=== PATIENT | female | born 1950 | race Two or more races ===

== ENCOUNTER 2024-09-03 10:12 | Inpatient (IN) | payer MEDICARE, OTHER ==
[~2024-09-03] VITALS: Ht 154.9 cm; Wt 54.5 kg
--- NOTE | 2024-09-03 10:49 | ED.PDOC ---
GI ASSESSMENT HPI Comments This is a 73 year old female brought in by daughter presenting to the ED with chief complaint of nausea/vomiting. Daughter reports that the patient had started to experience some nausea/vomiting with associated dizziness, headache, chills, and sweats this morning. Daughter relays that the patient had about 4-5 episodes of vomiting prior to arriving in the ED. Daughter states patient has history of hydrocephalus with a TAKE AWAY MAN shunt in place at this time. Patient denies any abdominal pain, hematemesis, diarrhea, fever, dysuria, melena, or flank pain. Chief Complaint: Nausea/Vomiting Time Seen by MD: 10:47 Reviewed Notes: Nurses Notes, Medications, Allergies Allergies: Coded Allergies: NO KNOWN ALLERGIES (Unverified , 09/03/24) Information Source: Patient, Relative (Child) Mode of Arrival: Ambulatory Timing: Hours Duration: Since onset Prehospital treatment: None Quality: None Vomitus: Watery Stool: Normal Severity: Moderate Recent: None Recent Hx of: None Pain Location: None Modifying Factors: Nothing Associated sign and symptoms: Nausea, Vomiting Past Medical History PAST MEDICAL HISTORY: HTN Past Medical History (Other): Hydrocephalus Surgical History (Other): TAKE AWAY MAN Shunt HEAD OF HOUSEKEEPING History: Denies all HEAD OF HOUSEKEEPING Hx Family History Family History: Reviewed,noncontributory to illness Social History Smoker: Non-Smoker, Quit Greater Than 1 Year Alcohol: Rarely Drugs: Denies Drug Use Lives In: Home Constitutional: reports: chills, sweats; denies: diaphoresis, fatigue, fever, malaise, weakness, others EENTM: denies: blurred vision, double vision, ear bleeding, ear discharge, ear drainage, ear pain, ear ringing, eye pain, eye redness, hearing loss, mouth pain, mouth swelling, nasal discharge, nose bleeding, nose congestion, nose pain, photophobia, tearing, throat pain, throat swelling, voice changes, others Respiratory: denies: cough, hemoptysis, orthopnea, SOB at rest, shortness of breath, SOB with excertion, stridor, wheezing, others Cardiovascular: denies: chest pain, dizzy spells, diaphoresis, Dyspnea on exertion, edema, irregular heart beat, left arm pain, lightheadedness, palpitations, PND, syncope, others Gastrointestinal: reports: nausea, vomiting; denies: abdomen distended, abdo jacqueline pain, blood streaked bowels, constipated, diarrhea, dysphagia, difficulty swallowing, hematemesis, melena, poor appetite, poor fluid intake, rectal bleeding, rectal pain, others Genitourinary: denies: abnormal vagina bleeding, burning, dyspareunia, dysuria, flank pain, frequency, hematuria, incontinence, pain, , vagina discharge, urgency, others Neurological: reports: dizziness, headache; denies: fainting, left sided numbness, left sided weakness, numbness, paresthesia, pre-existing deficit, right sided numbness, right sided weakness, seizure, speech problems, tingling, tremors, weakness, others Musculoskeletal: denies: back pain, gout, joint pain, joint swelling, muscle pain, muscle stiffness, neck pain, others Integumetry: denies: bruises, change in color, change in hair/nails, dryness, laceration, lesions, lumps, rash, wounds, others Allergic/Immunocompromised: denies: Difficulty Healing, Frequent Infections, Hives, Itching, others Hematologic/Lymphatic: denies: anemia, blood clots, easy bleeding, easy bruising, swollen glands, others Endocrine: denies: excessive hunger, excessive sweating, excessive thirst, excessive urination, flushing, intolerance to cold, intolerance to heat, unexplained weight gain, unexplained weight loss, others Psychiatric: denies: anxiety, bipolar disorder, depression, hopeless, panic disorder, schizophrenia, sleepless, suicidal, others All Other Systems: Reviewed and Negative Physical Exam General Appearance: Moderate Distress HEENT: Normal ENT Inspection, Pharynx Normal, TMs Normal Neck: Full Range of Motion, Non-Tender, Normal, Normal Inspection Respiratory: Chest Non-Tender, Lungs Clear, No Accessory Muscle Use, No Respiratory Distress, Normal Breath Sounds Cardiovascular: No Edema, No JVD, No Murmur, No Gallop, Normal Peripheral Pulses, Regular Rate/Rhythm Breast Exam: Deferred Gastrointestinal: No Organomegaly, No Pulsatile Mass, Normal Bowel Sounds, Soft, Suprapubic Genitalia: Deferred Pelvic: Deferred Rectal: Deferred Extremities: No calf tenderness, Normal capillary refill, Normal inspection, Normal range of motion, Non-tender, No pedal edema Musculoskeletal : Apperance: Normal Neurologic: Alert, gas plant repairer II-XII nml as Tested, Motor Weakness, Normal Affect, Normal Mood, No Sensory Deficits Cerebellar Function: Normal Reflexes: Normal Skin: Dry, Normal Color, Warm Lymphatic: No Adenopathy EKG EKG : Pulse Rate (adult): 61 [place]: Normal Cardiac Rhythm: NSR Block: None Hypertrophy: None ST: Normal Was a procedure done? Was a procedure done?: No GI differential Dx Differential Diagnosis: Gastritis/PUD, Gastroenteritis, Pancreatitis, UTI, Electrolyte Imbalance, Food Poisoning, Other (Sepsis) X-Ray, Labs, Meds, VS Vital Signs Date Time Temp Pulse Resp B/P (MAP) Pulse Ox O2 Delivery O2 Flow Rate FiO2 09/03/24 12:06 56 14 98 Room Air* 0 21 09/03/24 12:06 97.7 56 14 138/72 (94) 98 97.7 09/03/24 11:43 97.5 61 16 137/71 (93) 97 97.5 09/03/24 10:55 61 09/03/24 10:51 61 09/03/24 10:33 97.4 57 16 143/66 (91) 97 97.4 Lab Test 09/03/24 11:58 09/03/24 10:58 09/03/24 10:45 09/03/24 10:43 Range/Units Lactic Acid Level Pending White Blood Count 9.3 4.4-10.8 10^3/uL Red Blood Count 4.74 4.0-5.20 10^6/uL Hemoglobin 14.2 12.2-16.2 g/dL Hematocrit 42.9 36.0-46.0 % Mean Corpuscular Volume 90.5 80.0-100.0 fL Mean Corpuscular Hemoglobin 29.9 28.0-32.0 pg Mean Corpuscular Hemoglobin Concent 33.0 32.0-36.0 g/dL Red Cell Distribution Width 13.8 11.8-14.3 % Platelet Count 353 140-450 10^3/uL Mean Platelet Volume 7.9 6.9-10.8 fL Neutrophils (%) (Auto) 85.5 H 37.0-80.0 % Lymphocytes (%) (Auto) 9.1 L 10.0-50.0 % Monocytes (%) (Auto) 4.3 0.0-12.0 % Eosinophils (%) (Auto) 0.8 0.0-7.0 % Basophils (%) (Auto) 0.3 0.0-2.0 % Neutrophils # (Auto) 7.9 1.6-8.6 10 ^3/uL Lymphocytes # (Auto) 0.8 0.4-5.4 10 ^3/uL Monocytes # (Auto) 0.4 0-1.3 10 ^3/uL Eosinophils # (Auto) 0.1 0-0.8 10 ^3/uL Basophils # (Auto) 0 0-0.2 10 ^3/uL Nucleated Red Blood Cells 0.0 % Sodium Level 141 136-145 mmol/L Potassium Level 4.2 3.5-5.1 mmol/L Chloride Level 110 H 98-107 mmol/L Carbon Dioxide Level 22 20-31 mmol/L Anion Gap 9 5-15 Blood Urea Nitrogen 8 L 9-23 mg/dL Creatinine 0.80 0.550-1.02 mg/dL Glomerular Filtration Rate Calc 77 >90 mL/min BUN/Creatinine Ratio 10.0 10.0-20.0 Serum Glucose 92 74-106 mg/dL Calcium Level 10.5 H 8.7-10.4 mg/dL Urine Color Light-orange Yellow Urine Clarity Ex.turbid Clear Urine pH 5.5 5.0-9.0 Urine Specific [place] 1.017 1.001-1.035 Urine Protein Trace H Negative Urine Ketones Negative Negative Urine Blood 1+ H Negative /uL Urine Nitrite 2+ H Negative Urine Bilirubin Negative Negative Urine Urobilinogen Normal Negative mg/dL Urine Leukocyte Esterase 3+ Negative /uL Urine RBC 20 0 - 4 /hpf Urine WBC Clumps Present None Seen /hpf Urine Microscopic WBC 819 H 0-5 /HPF Urine Squamous Epithelial Cells Few <5 /hpf Urine Bacteria Few H None Seen /hpf Urine Mucus Few None Seen Urine Yeast (Budding) Moderate None Seen /hpf Urine Glucose Normal Normal mg/dL POC Glucose 92 70-106 mg/dl CT Head indicates: 1. Ventricular catheters as described. Mild ventriculomegaly which may suggest a mild degree of hydrocephalus. 2. No acute intracranial hemorrhage or mass effect. IV Hep-Lock was established. The urine test is significant for a a significant urine infection The CBC is within normal limits The lactic acid level is pending Blood cultures x2 were drawn and the patient was started on Rocephin 1 g IV piggyback for the UTI The patient is being admitted at this time The patient understands and agrees with the management. The patient was also given Zofran 4 mg IV push for the nausea Images Reviewed?: Images reviewed and evaluated by me Time of 1ST Reevaluation: 12:18 Reevaluation 1ST: Unchanged Patient Education/Counseling: Diagnosis, Treatment, Prognosis Family Education/Counseling: Diagnosis, Treatment, Prognosis Additional Information Reviewed patient's previous visit(s): None The following tests were ordered, and results were reviewed by me: CBC, BMP, UA, Head CT Additional information was gathered from interviewing the following independent historian: Daughter I reviewed and agreed with the following test results read by other provider: Head CT I discussed treatments and results with medical personnel and: Patient and daughter Comprehensive systems review obtained and negative except for what is stated in the HPI. Sepsis Sepsis Reasesment Focused Exam Orders: Laboratory Tests 09/03/24 11:58: Departure 1 Departure Time of Disposition: 12:18 Impression: Primary Impression: UTI (urinary tract infection) Qualified Codes: N30.01 - Acute cystitis with hematuria Additional Impressions: Generalized weakness Nausea Disposition: ADMITTED INPATIENT Admit to: Med Surg Condition: Fair Critical Care Note Critical Care Time?: No Stability Stability form required: Yes Unstable for transfer: ED Physician Assesment (Clinical assesment) Heart Score Heart Score: Heart Score Response (Comments) Value History N/A 0 EKG N/A 0 Age N/A 0 Risk Factors N/A 0 Troponin N/A 0 Total 0 I personally scribed for MANDEEP ARRIOLA MD ([email or web address]) on 09/03/24 at 10:49. Electronically submitted by Isaac Morales ([email or web address]). I personally scribed for MANDEEP ARRIOLA MD ([email or web address]) on 09/03/24 at 10:55. Electronically submitted by Isaac Morales ([email or web address]). I personally scribed for MANDEEP ARRIOLA MD ([email or web address]) on 09/03/24 at 12:06. Electronically submitted by Isaac Morales ([email or web address]). MANDEEP ARRIOLA MD Sep 03, 2024 10:49
[2024-09-03 11:17] LABS: Basophils # (auto) 0 10 ^3/uL (0-0.2); Basophils % (auto) 0.3 % (0.0-2.0); Eosinophils # (auto) 0.1 10 ^3/uL (0-0.8); Eosinophils % (auto) 0.8 % (0.0-7.0); Hematocrit 42.9 % (36.0-46.0); Hemoglobin 14.2 g/dL (12.2-16.2); Lymphocytes # (auto) 0.8 10 ^3/uL (0.4-5.4); Lymphocytes % (auto) 9.1 % (10.0-50.0); Mean Corpuscular Hemoglobin 29.9 pg (28.0-32.0); Mean Corpuscular Volume 90.5 fL (80.0-100.0); Monocytes # (auto) 0.4 10 ^3/uL (0-1.3); Monocytes % (auto) 4.3 % (0.0-12.0); Neutrophils # (auto) 7.9 10 ^3/uL (1.6-8.6); Neutrophils % (auto) 85.5 % (37.0-80.0); Platelet Count (auto) 353 10^3/uL (140-450); Red Blood Cells 4.74 10^6/uL (4.0-5.20); Red Cell Distribution Width 13.8 % (11.8-14.3); White Blood Cell 9.3 10^3/uL (4.4-10.8)
[2024-09-03 11:24] LABS: Potassium 4.2 mmol/L (3.5-5.1); Sodium 141 mmol/L (136-145)
[2024-09-03 11:25] LABS: Anion Gap 9 (5-15); Carbon Dioxide 22 mmol/L (20-31)
[2024-09-03 11:26] LABS: Urine Bacteria FEW /hpf (None Seen); Urine Blood 1+ /uL (Negative); Urine Budding Yeast MODERATE /hpf (None Seen); Urine Clarity Ex.Turbid (Clear); Urine Color Light-Orange (Yellow); Urine Mucus FEW (None Seen); Urine Protein, UAD TRACE (Negative); Urine Specific Gravity 1.017 (1.001-1.035); Urine Squamous Epithelial Cell FEW /hpf (<5); Urine Urobilinogen Normal (Negative); Urine WBC 819 /HPF (0-5); Urine WBC Clumps PRESENT /hpf (None Seen); Urine pH 5.5 (5.0-9.0)
[2024-09-03 11:29] LABS: Calcium 10.5 mg/dL (8.7-10.4); Chloride 110 mmol/L (98-107)
[2024-09-03 11:30] LABS: Glucose 92 mg/dL (74-106)
[2024-09-03 11:31] LABS: Blood Urea Nitrogen 8 mg/dL (9-23)
--- NOTE | 2024-09-03 12:03 | DVH ---
EXAM: CT HEAD WITHOUT CONTRAST INDICATION: TODD and dizziness TECHNIQUE: CT of the head without intravenous contrast. Coronal and sagittal reformatted images are s ubmitted. Radiation Dose : 1. Head: CT Dose: CTDI volume is 48.66 mGy. Dose-length product is 780.26 mGy*cm The dose indicators for CT are the volume Computed Tomography (CT) Dose Index (CTDIvol) and the Dose Length Product (DLP), and are measured in units of mGy and mGy-cm, respectively. These indicators are not patient dose, but values generated from the CT scanner acquisition factors. The report includes radiation exposure data for exposures received during this examination. All CT scans at this medical facility are performed using dose modulation techniques as appropriate to a performed exam including the following: Automated exposure control was utilized; adjustment of the MA and/or KV according to patient size; and use of iterative reconstruction technique. COMPARISON: None FINDINGS: There is no evidence of acute intracranial hemorrhage, extra-axial collection, mass effect, midline s hift. There is a left posterior approach ventricular catheter with its tip terminating in the corpus callos um. There is a right posterior approach ventricular catheter with its tip terminating in the right te mporal horn of the lateral ventricle. Mild ventriculomegaly noted. There are periventricular and subcortical hypodensities, nonspecific, but likely reflecting sequelae of chronic microvascular ischemic changes. The vásquez-white differentiation is intact. The visualized paranasal sinuses and mastoid air cells are clear. No depressed calvarial fracture. The surrounding soft tissues are unremarkable. IMPRESSION: 1. Ventricular catheters as described. Mild ventriculomegaly which may suggest a mild degree of hydr ocephalus. 2. No acute intracranial hemorrhage or mass effect.
[2024-09-03 12:06] VITALS: PULSE 56; RESP 14; O2SAT 98
[2024-09-03] MEDS: ONDANSETRON HCL 4 MG/2 ML VIAL IV ONE (12:22)
[2024-09-03] MEDS: SODIUM CHLORIDE 0.9% 500 ML IV ONE (12:22)
[2024-09-03] MEDS: cefTRIAXone 1GM/50ML D5W 50 ML IV ONE (12:23)
--- NOTE | 2024-09-03 14:20 | ECG ---
[facility] Test Date: 2024-09-03 Test Time: 10:51:45 Pat Name: UCHE HAMLIN Department: ER Room: [facility] Gender: F Snowmaker: : 1950 Requested By: MANDEEP ARRIOLA Order Number: [id number] Reading MD: Rick Grossman Measurements Intervals Anton Rate: 61 P: 54 [place]: 143 QRS: 26 QRSD: 133 T: 64 QT: 404 QTc: 407 Interpretive Statements Sinus rhythm Nonspecific intraventricular conduction delay Anteroseptal infarct, age indeterminate ST elevation, consider inferior injury Lateral leads are also involved Electronically Signed On 09-04-2024 12:35:33 PDT by Rick Grossman Please click the below link to view image of tracing.
--- NOTE | 2024-09-03 16:58 | DVHHP2 ---
History of Present Illness Reason for Visit: Nausea and Vomiting History of Present Illness Patient is a 73 year old female brought in by daughter presenting to the ED with chief complaint of nausea/vomiting. Daughter reports that the patient had started to experience some nausea/vomiting with associated dizziness, headache, chills, and sweats this morning. Daughter relays that the patient had about 4-5 episodes of vomiting prior to arriving in the ED. Daughter states patient has history of hydrocephalus with a DEVELOPMENT EXECUTIVE shunt in place at this time, HTN, and Prediabetes. Patient also is complaining og pelvic pain at times which she is attributing to a UTI. Review of Systems Constitutional: No: Fever, Chills, Sweats, Weakness, Malaise, Other Eyes: No: Pain, Vision change, Conjunctivae inflammation, Eyelid inflammation, Other, Redness ENT: No: Ear pain, Ear discharge, Nose pain, Nose discharge, Nose congestion, Mouth pain, Mouth swelling, Throat pain, Throat swelling, Other Respiratory: No: Cough, Dry, Shortness of breath, SOB with excertion, Wheezing, Hemoptysis, Pleuritic Pain, Sputum, Wheezing, Other Cardiovascular: No: Chest Pain, Palpitations, Orthopnea, Paroxysmal Noc. Dyspnea, Edema, Lt Headedness, Other Gastrointestinal: Nausea, Vomiting Genitourinary: No Dysuria, No Frequency, No Incontinence, No Hematuria, No Retention, No Other Musculoskeletal: No: other, neck pain, shoulder pain, arm pain, back pain, hand pain, leg pain, foot pain Skin: No: Rash, Lesions, Jaundice, Bruising, Other Neurological: No: Weakness, Numbness, Incoordination, Change in speech, Confusion, Seizures, Other Allergies: Coded Allergies: NO KNOWN ALLERGIES (Unverified , 09/03/24) Medications Current Medications Medications Dose Ordered Sig/Leidy Route Start Time Stop Time Status Last Admin Dose Admin Morphine Sulfate 2 mg Q4HPRN PRN IV 09/03/24 17:00 UNV Enoxaparin Sodium 40 mg DAILY SC 09/04/24 10:00 UNV Ondansetron HCl 4 mg Q6HPRN PRN IV 09/03/24 17:00 UNV Pantoprazole Sodium 40 mg DAILY IV 09/04/24 10:00 UNV Ceftriaxone Sodium 50 ml @ 100 mls/hr DAILY@09 IV 09/04/24 09:00 UNV Exam Vital Signs Vital Signs Date Time Temp Pulse Resp B/P (MAP) Pulse Ox O2 Delivery O2 Flow Rate FiO2 09/03/24 14:15 97.9 62 16 149/70 (96) 98 97.9 09/03/24 12:06 Room Air* 0 21 General Appearance: Alert, Oriented X3, Cooperative, No acute distress HEENT: Atraumatic Respiratory: Clear to auscultation Cardiovascular: Regular rate, Normal S1, Normal S2 Abdominal: Normal bowel sounds, Soft Psych/Mental Status: Mental status NL Labs/Xrays Labs Test 09/03/24 11:58 09/03/24 10:58 09/03/24 10:45 09/03/24 10:43 Range/Units Lactic Acid Level 1.1 0.4-2.0 mmol/L White Blood Count 9.3 4.4-10.8 10^3/uL Red Blood Count 4.74 4.0-5.20 10^6/uL Hemoglobin 14.2 12.2-16.2 g/dL Hematocrit 42.9 36.0-46.0 % Mean Corpuscular Volume 90.5 80.0-100.0 fL Mean Corpuscular Hemoglobin 29.9 28.0-32.0 pg Mean Corpuscular Hemoglobin Concent 33.0 32.0-36.0 g/dL Red Cell Distribution Width 13.8 11.8-14.3 % Platelet Count 353 140-450 10^3/uL Mean Platelet Volume 7.9 6.9-10.8 fL Neutrophils (%) (Auto) 85.5 H 37.0-80.0 % Lymphocytes (%) (Auto) 9.1 L 10.0-50.0 % Monocytes (%) (Auto) 4.3 0.0-12.0 % Eosinophils (%) (Auto) 0.8 0.0-7.0 % Basophils (%) (Auto) 0.3 0.0-2.0 % Neutrophils # (Auto) 7.9 1.6-8.6 10 ^3/uL Lymphocytes # (Auto) 0.8 0.4-5.4 10 ^3/uL Monocytes # (Auto) 0.4 0-1.3 10 ^3/uL Eosinophils # (Auto) 0.1 0-0.8 10 ^3/uL Basophils # (Auto) 0 0-0.2 10 ^3/uL Nucleated Red Blood Cells 0.0 % Sodium Level 141 136-145 mmol/L Potassium Level 4.2 3.5-5.1 mmol/L Chloride Level 110 H 98-107 mmol/L Carbon Dioxide Level 22 20-31 mmol/L Anion Gap 9 5-15 Blood Urea Nitrogen 8 L 9-23 mg/dL Creatinine 0.80 0.550-1.02 mg/dL Glomerular Filtration Rate Calc 77 >90 mL/min BUN/Creatinine Ratio 10.0 10.0-20.0 Serum Glucose 92 74-106 mg/dL Calcium Level 10.5 H 8.7-10.4 mg/dL Urine Color Light-orange Yellow Urine Clarity Ex.turbid Clear Urine pH 5.5 5.0-9.0 Urine Specific [place] 1.017 1.001-1.035 Urine Protein Trace H Negative Urine Ketones Negative Negative Urine Blood 1+ H Negative /uL Urine Nitrite 2+ H Negative Urine Bilirubin Negative Negative Urine Urobilinogen Normal Negative mg/dL Urine Leukocyte Esterase 3+ Negative /uL Urine RBC 20 0 - 4 /hpf Urine WBC Clumps Present None Seen /hpf Urine Microscopic WBC 819 H 0-5 /HPF Urine Squamous Epithelial Cells Few <5 /hpf Urine Bacteria Few H None Seen /hpf Urine Mucus Few None Seen Urine Yeast (Budding) Moderate None Seen /hpf Urine Glucose Normal Normal mg/dL POC Glucose 92 70-106 mg/dl Assessment/Plan Assessment/Plan # Abdominal Pain, unspecified - Monitor # Acute Cystitis - Rocephin # HTN - Get home meds # Prediabetes - Check A1c # Goals of care discussion >18 mins FULL CODE Plan discussed with: Patient, Daughter My Orders Orders - LAQUITA CHRISTIE MD Procedure Category Date Status Time Admit ADMIT 09/03/24 Transmitted 16:50 Code Status CODE 09/03/24 Transmitted 16:50 Vital Signs [facility] 09/03/24 Transmitted 16:50 Review Orders With ERVIN 09/03/24 Transmitted Adm. 16:50 Regular Diet DIET 09/03/24 Transmitted Dinner Sodium Chloride 0.9% PHA 09/03/24 Transmitted 17:00 Acetaminophen Tablet PHA 09/03/24 Transmitted (Tylenol Tablet) 17:00 Notify Of Changes [facility] 09/03/24 Transmitted From Base 16:50 Advance Directive ERVIN 09/03/24 Transmitted 16:50 Patient Condition ORDERS 09/03/24 Transmitted 16:50 Allergies ERVIN 09/03/24 Transmitted 16:50 Hydrocodone-Acet PHA 09/03/24 Transmitted 5/325mg Tab ([place] 17:00 Ondansetron Hcl PHA 09/03/24 Transmitted (Zofran) 17:00 Morphine Sulfate PHA 09/03/24 Logged Injection 17:00 Enoxaparin Sodium PHA 09/04/24 Logged (Lovenox) 10:00 Ondansetron Hcl PHA 09/03/24 Logged (Zofran) 17:00 Pantoprazole PHA 09/04/24 Logged (Protonix) 10:00 Pantoprazole PHA 09/03/24 Logged (Protonix) 17:00 Ceftriaxone 1gm/50ml PHA 09/04/24 Logged D5w (Rocephin) 09:00 Pharmacy To Reconcile ORDERS 09/03/24 Transmitted Home Med 16:50 Get List Of Home ORDERS 09/03/24 Transmitted Medications 16:50 Date of Service: Sep 03, 2024 Billing Provider: LAQUITA CHRISITE MD Common Visit Codes: 22716-MNPPBMG INP/OBS CARE (HIGH) Secondary Visit Codes: [id number]-[id number] CARE PLAN 30 MINUTES LAQUITA CHRISTIE MD Sep 03, 2024 16:58
[2024-09-03] MEDS ORDERED: ACETAMINOPHEN 325 MG TAB PO PRN (17:00)
[2024-09-03] MEDS ORDERED: ONDANSETRON HCL 4 MG/2 ML VIAL IV PRN ×2 (17:00)
[2024-09-03] MEDS ORDERED: HYDROcodone-ACET 5/325MG TAB PO PRN (17:00)
[2024-09-03] MEDS ORDERED: MORPHINE SULFATE INJ 2 MG/ml SYRG IV PRN (17:00)
[2024-09-03 17:01] VITALS: PULSE 56; RESP 17; O2SAT 97
[2024-09-03] MEDS: SODIUM CHLORIDE 0.9% 1,000 ML IV SCH (17:10)
[2024-09-03] MEDS: PANTOPRAZOLE 40 MG/10 ML VIAL INJ IV ONE (17:10)
[2024-09-03 17:14] VITALS: BP 129/70; PULSE 56; RESP 17; TEMP 98.8
[2024-09-03 18:39] VITALS: O2SAT 95
[2024-09-04] MEDS ORDERED: cefTRIAXone 1GM/50ML D5W 50 ML IV SCH (09:00)
[2024-09-04] MEDS ORDERED: PANTOPRAZOLE 40 MG/10 ML VIAL INJ IV SCH (10:00)
[2024-09-04] MEDS ORDERED: ENOXAPARIN SOD 40 MG/0.4 ML SYRINGE SC SCH (10:00)
== END 2024-09-03 20:45 | disposition left against medical advice (07) | DRG 690 ==
LOC: ER 10:12 → EDBD 10:12 → OVERFLOW 16:50 → WEST WING 18:20
PROVIDERS: ADMIT Internal Medicine; ATTEND Internal Medicine
DX: N30.00 Acute cystitis without hematuria (principal); I10 Essential (primary) hypertension; Z53.29 Procedure and treatment not carried out because of patient's decision for other reasons; R73.03 Prediabetes; Z98.2 Presence of cerebrospinal fluid drainage device; Z79.899 Other long term (current) drug therapy
CPT/HCPCS: 36415; 70450; 80048; 81001; 82962; 83605; 85025; 87040; 93005; 96365; G0378; J2405; J2470